=== PATIENT | male | born 1960 | race Caucasian/White ===

== ENCOUNTER 2024-02-19 08:57 | Observation (INO) ==
--- NOTE | 2024-02-04 14:56 | Anesthesiology Consultation ---
Date of Service February 04, 2024 Assessment & Plan (1) Encounter for pre-operative examination: Infectious disease screening: Per assessment on 02/04/24- No known recent infectious disease contacts or current infectious disease symptoms. Chart Review Chart Review: Acceptable Risk for Surgery and Patient NOT seen in Pre Admission Testing History Surgery Operation Date: 02/19/24 10:30 Proposed Procedures p Robotic assisted Laparoscopic Radical Retropubic Prostatectomy, Possible Open, Possible Pelvic Lymph Node Dissection - Shyam Henderson MD Height/Weight Height: 5 ft 10 in Weight: 88.451 kg Allergies Allergy/AdvReac Type Severity Reaction Status Date / Time No Known Allergies Allergy Verified 02/04/24 14:05 Medications Home Medications Medication Instructions Recorded Confirmed Last Taken multivitamin (Daily Multi-Vitamin 1 tab PO QAM 08/14/23 02/04/24 09/04/23 tablet) tamsulosin 0.4 mg capsule (Flomax) 0.4 mg PO QPM #90 caps 10/09/23 02/04/24 Unknown tadalafil 5 mg tablet 5 mg PO QPM 02/04/24 02/04/24 Unknown Past Medical History Medical History BPH (benign prostatic hyperplasia) Erectile dysfunction History of convulsions As child approximately age 4-5 No further details, no issues since Hx of basal cell carcinoma (01/2023) s/p MOHS scalp Prostate cancer Past Family History Family History Uncle Dementia Grandmother (Maternal) Diabetes Hypertension Grandfather (Maternal) Myocardial infarction Mother FHx: leukemia at age 31. Other No family history of adverse response to anesthesia Denies family history of Ovarian cancer Prostate cancer Depression Heart disease Breast cancer Lung cancer Colorectal cancer Stroke Past Surgical History Surgical History History of colonoscopy 09/05/2023, repeat due in 10 years History of tonsillectomy Status post Mohs surgery Top of head 2022; [facility] Social History Smoking Status: Never smoker Do You Dip or Chew Tobacco: No Hx Alcohol Use: No Alcohol type: beer Hx Substance Use: No substance use type: does not use Lab Results Anesthesia Preop Results Results Anesthesia Widget: WBC 6.35 K/ul (4.8-10.8) 01/31/24 Hgb 14.5 g/dl (14.0-18.0) 01/31/24 Hct 44.4 % (42.0-52.0) 01/31/24 Plt 247 K/uL (130-400) 01/31/24 Na 140 mmol/L (136-145) 01/31/24 K 4.1 mmol/L (3.5-5.1) 01/31/24 Cl 105 mmol/L (98-107) 01/31/24 CO2 30 mmol/L (21-32) 01/31/24 BUN 13 mg/dl (6-23) 01/31/24 Creat 1.02 mg/dl (0.6-1.4) 01/31/24 Glucose Level 97 mg/dl (70-99(Fasting)) 01/31/24 Testing Electrocardiogram Date: 01/31/24 Findings: + NSR @ (69) Chest X-Ray Date: 01/31/24 FINDINGS: No lines and tubes are seen. The cardiomediastinal silhouette is normal. The lungs are clear. No evidence of pleural effusion or pneumothorax. IMPRESSION: No acute chest disease.
[~2024-02-19 08:57] MED LIST: LACTATED RINGER'S 1,000 ML IV SCH
[2024-02-19] MEDS: HEPARIN SOD 5,000 UNIT/0.5 ML VIAL SQ SCH ×2 (09:33→20:28)
[2024-02-19] MEDS: LR 15ML/HR IV SCH (09:33)
--- NOTE | 2024-02-19 10:18 | History & Physical Bridge Note ---
Date of Service February 19, 2024 History & Physical Bridge Note I have examined the patient, reviewed the History & Physical and in the interval since the performance of the History & Physical I have noted the following changes of clinical significance: no changes noted
[2024-02-19] MEDS ORDERED: ONDANSETRON INJ 2 MG/ML 2 ML VIAL ONE (10:34)
[2024-02-19] MEDS ORDERED: MIDAZOLAM HCL 1 MG/ML 2ML VIAL ONE (10:34)
[2024-02-19] MEDS ORDERED: ROCURONIUM BROMIDE 10 MG/ML 5 ML VIAL IV ONE ×3 (10:34→12:57)
[2024-02-19] MEDS ORDERED: DEXAMETHASONE SOD INJ 4 MG/ML VIAL ONE (10:34)
[2024-02-19] MEDS ORDERED: PROPOFOL IV EMULSION 10 MG/ML 20 ML VIAL IV ONE (10:34)
[2024-02-19] MEDS ORDERED: fentaNYL citrate PF 100 MCG/2 ML VIAL ONE ×2 (10:35→12:54)
[2024-02-19] MEDS ORDERED: HYDROmorphone INJ 1 MG/ML SYRINGE IV PRN (10:38)
[2024-02-19] MEDS ORDERED: ONDANSETRON INJ 2 MG/ML 2 ML VIAL IV PRN (10:38)
[2024-02-19] MEDS ORDERED: ATROPINE SULFATE 0.1 MG/ML 10ML SYR IV PRN (10:38)
[2024-02-19] MEDS ORDERED: KETOROLAC 30 MG/ML VIAL IV PRN (10:38)
[2024-02-19] MEDS: ceFAZolin 2000MG 2,000 MG/15 ML SYR IV SCH ×2 (11:15→17:54)
[2024-02-19] MEDS ORDERED: PHENYLEPHRINE 100MCG/ML 5ML SYR ONE (11:18)
[2024-02-19] MEDS ORDERED: GLYCOPYRROLATE 0.2 MG/ML VIAL ONE (11:32)
[2024-02-19] MEDS ORDERED: VASOPRESSIN 20 UNIT/ML VIAL ONE (11:32)
[2024-02-19] MEDS: BUPIVACAINE 0.5 % 5 MG/1 ML MPF 30ML VIAL ONE (12:29)
[2024-02-19] MEDS ORDERED: SUGAMMADEX SODIUM 200 MG/2 ML VIAL IV ONE (13:26)
[2024-02-19] MEDS: SURGICEL ABSORB HEMOSTAT 2IN X 14IN TOP ONE (13:43)
--- NOTE | 2024-02-19 14:08 | Operative Report ---
PG Post Operative Report Pre & Post Diagnosis Operation Date: 02/19/24 10:30 Pre-Op Diagnosis: Malignant Neoplasm of Prostate Post-Op Diagnosis: Malignant Neoplasm of Prostate I identified the patient and participated in the time-out.: Yes Procedure Operation Date: 02/19/24 10:30 Actual Procedures p Robotic Assisted Laparoscopic Radical Retropubic Prostatectomy with Bilateral Pelvic Lymph Node Dissection(Not Applicable) - Shyam Henderson MD Surgeon Shyam Henderson MD Maintenance And Custodian Supervisor Mckenna Masterson Estimated Blood Loss 100 Findings Consistent with Post-Op Diagnosis Specimens 1. Periprostatic fat 2. Left pelvic lymph nodes 3. Right pelvic lymph nodes 4. Prostate and seminal vesicles Description of Procedure The patient was identified in the preoperative holding area, appropriate informed consents were reviewed and completed, and he was transported to the operating suite. Subcutaneous heparin was administered in the pre-operative holding area. Upon arrival in the operating suite, he received appropriate antibiotics and general anesthesia. He was positioned in dorsal lithotomy, a B&O suppository was inserted after digital rectal exam, and he was prepped and draped in standard fashion. A Serrano catheter was inserted in the sterile field. A Veress needle was passed per umbilicus with uniform insufflation of the abdomen to 15mmHg. He was placed in steep Trendelenburg position. A periumbilical incision was then made to accommodate a 12mm Visiport with 10mm 0degree laparoscope. Inspection of the abdomen was carried out, and there was no evidence of traumatic entry or injury secondary to the Veress needle. After confirming a clear anterior abdominal wall, ports were subsequently placed in standard robotic prostatectomy fashion without incident. To begin the robotic portion of the case, the left lateral aspect of the sigmoid was mobilized off of the left pelvic side wall to allow the pouch of Ashish to be appropriately visualized. I then made an incision in the pouch of Ashish, overlying the seminal vesicles. Both SVs as well as the ampullae of the vasa were entirely dissected, with the vasa transected 3cm from the prostate. The medial umbilical ligaments were then controlled with bipolar electrocautery just inferior to the umbilicus. Following cauterization, they were divided utilizing monopolar cautery. A peritoneal incision was carried from this location to the medial aspect of the internal inguinal rings bilaterally with care to avoid opening through the ring. This incision was concluded when the vas deferens was reached. Dissection of the bladder and prostate off of the posterior aspect of the pubic arch was completed allowing full visualization of the prostate. The fat overlying the prostate was removed en bloc and passed off the table as a specimen labeled "periprostatic fat". The endopelvic fascia was cleared during this portion of the procedure, and subsequently opened - first on the right and then the left. The incision through the endopelvic fascia began near the prostate-bladder junction and was carried to the apex with extreme care to preserve all lateral levator musculature as well as the periurethral musculature and sphincter complex. I additionally preserved the puboprostatic ligaments. I then controlled the DVC with a 3-0 V-lock suture in overlapping/figure of 8 fashion. The lymph node dissection was then conducted. External iliac vessels were identified on the pelvic side wall. The packet of fat and lymphatic tissue that resides just under the iliac vein was elevated and off of the vein with a split and roll technique. The packet was dissected laterally to the circumflex vein and distally to the obturator nerve which was preserved. The proximal aspect of the packet was carried towards the bifurcation of the iliac vessels. A combination of monopolar and bipolar cautery were used to assist with control. After completing the dissection on both sides, the packets were collected and passed off of the table as specimens labeled "pelvic lymph nodes". My attention then returned to the prostate, with identification of the bladder neck aided by gentle traction on the Serrano catheter and lateral to medial pressure at the presumed level of the bladder neck with the robotic instruments. An anterior cystotomy was made, the Serrano balloon deflated and the catheter guided through the incision to allow anterior retraction. I attempted to preserve maximal bladder neck musculature as I circumferentially dissected around the bladder neck. After incision through the posterior aspect of the mucosa, the dissection was carried through detrusor muscle until the bilateral ampullae of the vasa were identified. The previously dissected vasa and SVs were brought through the incision and used to elevated the prostate anteriorly. A posterior plane behind the prostate was then developed - splitting Denonv illiers's fascia. This dissection was carried as far as possible towards the apex as well as far as possible laterally. An incision in the lateral prostatic fascia was then made bilaterally to facil itate control of the vascular pedicles and preservation of the nerve bundles. Vasculature running along the posterior/lateral aspect of the prostate was preserved as well as the tissue containing the nerves. The pedicles were then controlled with a series of Weck clips. The apical attachments of the prostate were remaining at that stage. The DVC was divided after control with bipolar cautery over the prostate. Continuous inspection from anterior and lateral views allowed me to closely follow the apical contour of the prostate and maximally preserve urethral length and tissue. The prostate was entirely freed at that point, and collected in an EndoCatch bag before being moved out of the field of vision. Hemostasis was confirmed and anastomosis of the bladder and urethra was completed utilizing a double armed V- Lock stitch. Of note, I did reconstruct the bladder neck prior to closure secondary to close proximity of the UOs to the bladder neck and slight mismatch between the bladder neck and urethra. I utilized a 3-0 Vicryl suture to do this. Extreme care was used during the anastomosis to avoid entrapment of the left UO which was still relatively close to the anastamosis. A new Serrano catheter was inserted and the anastomosis tested with irrigation. There was no evidence of leak. A damon style stitch was placed bilaterally to functionally marsupialize the area of the lymph node dissection. The robot was undocked, the specimen extracted through expansion of the ankush- umbilical camera port. The fascia was closed with a series of 0-PDS figure of 8 stitches. The right assistant housekeeping manager port was closed in two layers - with a figure of 8 0-Vicryl to reapproximate the fascia followed by 4-0 Monocryl to close the skin. Monocryl was used to close all other skin incisions. All wounds were dressed with Dermabond. The case was concluded and the patient taken to the PACU in stable condition. Mckenna Masterson assisted from incision to closure. I attest to the content of the Intraoperative Record and any orders documented therein. Any exceptions are noted below.
--- NOTE | 2024-02-19 15:01 | Anesthesiology Progress Note ---
Date of Service February 19, 2024 Anesthesia Post Procedure Vital Signs Vital Signs: Temp Pulse Pulse Resp BP Pulse Ox O2 Del Method 02/19/24 14:40 93 H 14 126/76 96 Room Air 02/19/24 14:30 85 16 132/77 99 Room Air 02/19/24 14:20 82 11 L 124/72 99 Room Air 02/19/24 14:10 88 14 126/73 96 Room Air 02/19/24 14:04 36.8 C 93 H 9 L 102/60 91 Room Air 02/19/24 09:55 36.8 C 90 20 129/88 97 Room Air Transfer of Care Handoff Completed per policy Notes Mental Status: alert / awake / arousable Patient Amnestic to Procedure: Yes Nausea / Vomiting: adequately controlled Pain: adequately controlled Airway Patency, RR, SpO2: stable & adequate BP & HR: stable & adequate Hydration State: stable & adequate Anesthetic Complications: no major complications apparent
[2024-02-19 15:14] LABS: Basophils # (auto) 0.03 K/uL (0.00-0.20); Basophils % (auto) 0.3 %; Eosinophils # (auto) 0.02 K/uL (0.00-0.50); Eosinophils % (auto) 0.2 %; Hematocrit (blood only) 39.9 % (42.0-52.0); Hemoglobin 13.2 g/dl (14.0-18.0); Immature Granulocytes # (auto) 0.05 K/uL (0.01-0.20); Immature Granulocytes % (auto) 0.5 %; Lymphocytes % (auto) 7.3 %; Mean Corpuscular Hemoglobin 28.4 pg (25.0-34.0); Mean Corpuscular Hgb Conc 33.1 g/dL (32.0-36.0); Mean Platelet Volume 9.9 fL (9.4-12.4); Monocytes # (auto) 0.25 K/uL (0.11-0.59); Monocytes % (auto) 2.3 %; Neutrophils # (auto) 9.87 K/uL (1.40-6.50); Neutrophils % (auto) 89.4 %; Platelet Count 195 K/uL (130-400); RDW Coefficient of Variation 14.2 % (11.5-14.5); RDW Standard Deviation 44.7 fL (36.4-46.3); Red Blood Count 4.64 M/uL (4.70-6.10); White Blood Count 11.02 K/ul (4.8-10.8)
[2024-02-19] MEDS ORDERED: MoRPHine SULFATE 2 MG/ML CARP IV PRN (15:31)
[2024-02-19 16:01] LABS: Calcium 8.7 mg/dl (8.6-10.3); Potassium 4.1 mmol/L (3.5-5.1)
[2024-02-19 16:06] LABS: BUN Creatinine Ratio 11.4 (10-20); Creatinine Clr Calc Pharmacy 81.5 ml/min
[2024-02-19] MEDS: SODIUM CHLORIDE 0.9% 1,000 ML IV SCH (16:32)
[2024-02-19] MEDS: ACETAMINOPHEN 325 MG TAB PO SCH (17:54)
[2024-02-19] MEDS: DOCUSATE SODIUM 100 MG CAP PO SCH (20:28)
[2024-02-19] MEDS: oxyCODONE HCL IR 5 MG TAB (IMMEDIATE RELEASE) PO PRN (22:19)
[2024-02-19] MEDS: ONDANSETRON INJ 2 MG/ML 2 ML VIAL IV PRN (23:11)
[2024-02-19] MEDS: MoRPHine SULFATE 4 MG/ML 1 ML CARP\\VIAL IV PRN (23:27)
[2024-02-20 06:30] LABS: Basophils # (auto) 0.02 K/uL (0.00-0.20); Basophils % (auto) 0.1 %; Eosinophils # (auto) 0.01 K/uL (0.00-0.50); Eosinophils % (auto) 0.1 %; Hematocrit (blood only) 39.3 % (42.0-52.0); Hemoglobin 13.2 g/dl (14.0-18.0); Immature Granulocytes # (auto) 0.09 K/uL (0.01-0.20); Immature Granulocytes % (auto) 0.6 %; Mean Corpuscular Hemoglobin 28.7 pg (25.0-34.0); Mean Corpuscular Hgb Conc 33.6 g/dL (32.0-36.0); Mean Corpuscular Volume 85.4 fL (80.0-100.0); Mean Platelet Volume 9.7 fL (9.4-12.4); Monocytes # (auto) 1.38 K/uL (0.11-0.59); Monocytes % (auto) 8.5 %; Neutrophils # (auto) 13.52 K/uL (1.40-6.50); Neutrophils % (auto) 82.7 %; Platelet Count 220 K/uL (130-400); RDW Coefficient of Variation 14.3 % (11.5-14.5); RDW Standard Deviation 44.2 fL (36.4-46.3); White Blood Count 16.32 K/ul (4.8-10.8)
[2024-02-20 06:47] LABS: Calcium 8.5 mg/dl (8.6-10.3); Creatinine Clr Calc Pharmacy 72.5 ml/min
[2024-02-20 07:06] VITALS: RESP 18
[2024-02-20] MEDS: MULTIVITAMIN TAB PO SCH (08:36)
--- NOTE | 2024-02-20 10:02 | Urology Progress Note ---
Date of Service February 20, 2024 Assessment & Plan (1) Prostate cancer: Plan: Recovering appropriately s/p radical prostatectomy on 02/19/2024. He is tolerating a diet, ambulating and pain is reasonably well-controlled. We will plan on discharge home today. Admission and Anticipated Discharge Date Admission Date: February 19, 2024 Subjective Feeling okay this morning Had some sharp pain last night requiring morphine, feeling better this morning Has been tolerating a diet with no nausea or vomiting Has been up and ambulating No issues with Serrano catheter overnight Physical Exam Physical Exam: Well-appearing, NAD Abdomen soft, appropriate ankush-incisional tenderness Incisions intact with Dermabond in place. Gauze over the supraumbilical incision with serous drainage. Serrano catheter in place draining faintly pink-tinged urine. Results & Data Vital Signs (Past 12 Hours) Vital Signs Temp Pulse Resp BP Pulse Ox O2 Del Method 02/20/24 07:04 37 C 98 H 18 109/65 96 Room Air 02/20/24 03:09 36.8 C 94 H 14 137/64 95 Room Air 02/19/24 22:16 37.2 C 88 16 155/83 H 99 Room Air 02/19/24 22:10 Room Air PG Care Time/CCT Total # of Minutes Spent Total Time Spent with Patient: Total time spent is greater than 50% in coordination of care (as documented) at patient's floor/unit and/or counseling patient: Coding Level of Care Code None Diagnoses Prostate cancer C61
--- NOTE | 2024-02-20 10:07 | Discharge Summary ---
Date of Service February 20, 2024 Admission HPI Per Admitting Provider This is a 63-year-old male followed by urology for prostate cancer. He underwent robotic radical prostatectomy on 02/19/2024 and was admitted postoperatively in good condition. Admission Exam Per Admitting Provider General: Alert and oriented, no acute distress HEENT: Normocephalic, mucous membranes moist Pulmonary: Nonlabored respirations Abdomen: Nondistended Extremities: Moves all 4 spontaneously Neuro: No gross deficits Skin: Warm, dry, no rashes noted Principal Diagnosis Prostate cancer Discharge Exam Well-appearing, NAD Abdomen soft, appropriate ankush-incisional tenderness Incisions intact with Dermabond in place. Gauze over the supraumbilical incision with serous drainage. Huber catheter in place draining faintly pink-tinged urine Discharge Data Allergies Allergy/AdvReac Type Severity Reaction Status Date / Time No Known Allergies Allergy Verified 02/19/24 09:21 Procedures Performed Operation Date: 02/19/24 10:30 Actual Procedures p Robotic Assisted Laparoscopic Radical Retropubic Prostatectomy with Bilateral Pelvic Lymph Node Dissection(Not Applicable) - Shyam Henderson MD Hospital Course (1) Prostate cancer: He underwent robotic radical prostatectomy on 02/19/2024. By 02/20/2024, he was ambulating, tolerating a diet and pain was well-controlled. He was discharged home in good condition. Total Time Total Time Spent Total Time Spent (In Minutes): 15 Discharge Plan Discharge Items Patient Disposition: Home - Self-Care Reason For Visit: Malignant Neoplasm of Prostate Discharge Diagnosis: Prostate cancer Activity: Per Instructions section Non-emergency contact: Urologist Call non-emergency contact if: your symptoms worsen, your pain is not controlled, your pain is worsening, your pain is unusual for you, your temperature is above 101, your wound has increased redness, your wound has increased drainage and your wound pain has increased Follow-up/Referrals: Johny Shore DO [Primary Care Provider] - Diet: Regular Addtl Attending Provider Instructions: The surgery you had was: Robot-assisted radical prostatectomy with bilateral pelvic lymph node dissection. Please take all medications as prescribed and keep all follow-ups as scheduled. Please call our office at [phone] with any questions, concerns or need to reschedule appointments for any reason. We are happy to assist you Medications: Please take all medications as prescribed. For pain control, you can take tylenol every 6 hours. You can also take ibuprofen every 6 hours. If you have been prescribed a narcotic pain medication, please take this according to the instructions on the label. You have been prescribed a single dose of antibiotics (Bactrim) to be taken 1 hour prior to your appointment for huber catheter removal. Activity: We recommend having someone with you for the first few days after surgery to help care for you. For the first 2 weeks after surgery, we would like you to get up and walk around your house. However, we recommend limit physical activity that would increase your heart rate. This will allow your body to rest and heal. Take naps if you feel tired. Don't lift anything heavier than 10 pounds, mow the law or ride a bicycle until your follow-up appointment. Please avoid long car rides. Home Care: Unless directed otherwise, drink 6 to 8 glasses of water a day (enough to keep your urine light colored). This will also help keep a healthy flow of urine. We recommend using a stool softener such as colace or miralax for the first two weeks to avoid constipation. Huber Catheter care: Keep the catheter well secured with either a leg back or leg strap with large bag. Empty your bag when it's about half full. You may notice some blood in the bag. This is normal after surgery and while the catheter is in place. Use mild soap (such as Dove or Dial) and water to wash the catheter and the head of your penis daily, or more frequently if needed. Return to your normal diet, we encourage good protein intake to promote healing. You may shower as normal. Please avoid tub baths or soaking until catheter removed and incisions well healed. Wearing sweat pants while you have the catheter is recommended, they will be more comfortable. Follow-up The office will call to confirm appointments for follow-up visit, wound check, Huber catheter removal. Call [facility] at [phone] right away if you have any of the following: Chest pain or trouble breathing (call 191 or go to the hospital) Fever of 101F or higher, uncontrolled vomiting Heavy bleeding, clots, or bright red blood from the catheter Catheter that falls out or stops draining Foul-smelling discharge from your catheter Redness, swelling, warmth, or increased pain at your incision site Drainage, pus, or bleeding from your incision Pending Studies at Discharge: No Stand-Alone Forms: My [facility], Smoking Cessation Medications and DC Order Prescriptions: New sulfamethoxazole-trimethoprim [Bactrim DS] 800-160 mg tablet 1 tab PO ONCE 1 Days Qty: 1 0RF oxycodone 5 mg tablet 5 mg PO Q6H PRN (Reason: pain) Qty: 10 0RF Rx Instructions: for acute post-surgical pain Continued multivitamin [Daily Multi-Vitamin] Tablet 1 tab PO QAM tadalafil 5 mg tablet 5 mg PO QPM Discontinued tamsulosin [Flomax] 0.4 mg capsule 0.4 mg PO QPM Qty: 90 1RF Rx Instructions: 1 cap at night after dinner Discharge Orders: Discharge Order (Routine); Ordered 02/20/24 Ordered By: Dax Márquez Admission Data Admit Date/Time: 02/19/24 14:00 Attending Provider: Shyam Henderson Admit Provider: Shyam Henderson Primary Care Provider: Johny Shore Coding Level of Care Code 74231 IN/OBS DISCH 30 MIN/LESS Diagnoses Prostate cancer C61
[2024-02-20] MEDS: oxyCODONE HCL IR 5 MG TAB (IMMEDIATE RELEASE) PO PRN (10:09)
[2024-02-20 10:35] VITALS: BP 149/87; PULSE 95; TEMP 98.2; O2SAT 97
== END 2024-02-20 13:41 | disposition home or self-care (01) ==
LOC: ASU 08:57 → 3E 14:00 → INTOOBSV 14:00